=== PATIENT | female | born 1985 | race Caucasian/White ===

== ENCOUNTER 2017-05-12 09:16 | Emergency (ER) | payer OTHER ==
[2017-05-12 10:58] LABS: BILIRUBIN NEGATIVE (NEGATIVE); BLOOD 2+ Ery/uL (NEGATIVE); CLARITY CLEAR (CLEAR); COLOR YELLOW (YELLOW); GLUCOSE (U) NORMAL (NORMAL); KETONE (U) NEGATIVE (NEGATIVE); LEUKOCYTES NEGATIVE Leu/uL (NEGATIVE); NITRITE NEGATIVE (NEGATIVE); PROTEIN NEGATIVE (NEGATIVE); UROBILINOGEN 0.2 mg/dL (0.2-1.0); pH 7.5 (5.0-9.0)
[2017-05-12 11:05] LABS: CREATININE 0.9 mg/dL (0.5-1.0)
[2017-05-12 11:40] LABS: HCT 45.1 % (37.0-47.0); HGB 14.7 g/dl (12.5-16.0); MCH 29.4 pg (25.0-31.0); MCV 90.2 fL (78.0-100.0)
[2017-05-12 11:41] LABS: MCHC 32.6 g/dL (32.0-36.0); PLT 170 K/uL (150-400); WBC 7.2 K/uL (4.0-10.5)
[2017-05-12 11:43] LABS: BACTERIA 1+
[2017-05-12 11:44] LABS: MUCOUS TRACE
[2017-05-12 15:51] LABS: BASOPHIL 0.1 % (0-2); LYMPHOCYTE 16.6 % (15-48); MONOCYTE 6.3 % (0-12); MPV 12.6 fL (6.0-9.5); RDW 13.8 % (11.5-14.0)
== END 2017-05-12 12:15 | disposition home or self-care (01) ==
LOC: FER 09:16
PROVIDERS: Nurse Practitioner
DX: I10 Essential (primary) hypertension (principal); F41.9 Anxiety disorder, unspecified; R00.0 Tachycardia, unspecified; Z88.1 Allergy status to other antibiotic agents; Z79.899 Other long term (current) drug therapy
CPT/HCPCS: 36415; 80048; 81001; 85025; 99283